=== PATIENT | male | born 2000 | race Caucasian/White ===

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

== ENCOUNTER 2018-03-09 19:19 | Emergency (ER) | payer BC ==
[~2018-03-09] VITALS: Ht 170.1 cm; Wt 49.9 kg
[2018-03-09 19:50] LABS: BILIRUBIN 1+ (NEGATIVE); BLOOD NEGATIVE (NEGATIVE); CLARITY CLEAR (CLEAR); COLOR YELLOW (YELLOW); GLUCOSE NEGATIVE (NEGATIVE); KETONE NEGATIVE (NEGATIVE); PH 6.5 (5.0-9.0)
[2018-03-09 19:51] LABS: LEUKO ESTERASE NEGATIVE (NEGATIVE); NITRITE NEGATIVE (NEGATIVE); UROBILINOGEN 0.2 E.U./dl (0.2-1.0)
[2018-03-09 19:59] LABS: RBC 0-2 rbc/hpf (0-2); WBC 0-2 wbc/hpf (0-5)
[2018-03-09 20:00] LABS: BACTERIA TRACE
== END 2018-03-09 21:03 | disposition home or self-care (01) ==
LOC: ED 19:19
PROVIDERS: Physician Assistant
DX: N34.2 Other urethritis (principal)

== ENCOUNTER 2018-05-20 19:23 | Emergency (ER) | payer BC ==
[~2018-05-20] VITALS: Ht 170.1 cm; Wt 54.4 kg
[2018-05-23 15:05] LABS: GONOCOCCUS BY NAA Negative (Negative)
== END 2018-05-20 20:00 | disposition home or self-care (01) ==
LOC: ED 19:23
PROVIDERS: Student in an Organized Health Care Education/Training Program
DX: R36.9 Urethral discharge, unspecified (principal); R30.9 Painful micturition, unspecified; Z11.3 Encounter for screening for infections with a predominantly sexual mode of transmission; Z79.899 Other long term (current) drug therapy

== ENCOUNTER 2018-06-25 13:59 | Emergency (ER) | payer BC ==
[~2018-06-25] VITALS: Ht 170.1 cm; Wt 54.4 kg
[2018-06-25 14:49] LABS: BILIRUBIN NEGATIVE (NEGATIVE); BLOOD NEGATIVE (NEGATIVE); CLARITY CLEAR (CLEAR); COLOR YELLOW (YELLOW); GLUCOSE NEGATIVE (NEGATIVE); KETONE NEGATIVE (NEGATIVE); LEUKO ESTERASE NEGATIVE (NEGATIVE); NITRITE NEGATIVE (NEGATIVE); SPECIFIC GRAVITY 1.015 (1.005-1.030); UROBILINOGEN 0.2 E.U./dl (0.2-1.0)
[2018-06-25 15:22] LABS: BACTERIA TRACE; RBC 0-2 rbc/hpf (0-2)
[2018-06-27 14:07] LABS: GONOCOCCUS BY NAA Negative (Negative)
== END 2018-06-25 16:02 | disposition home or self-care (01) ==
LOC: ED 13:59
PROVIDERS: Emergency Medicine
DX: R30.0 Dysuria (principal); Z11.3 Encounter for screening for infections with a predominantly sexual mode of transmission; Z79.899 Other long term (current) drug therapy

== ENCOUNTER 2018-07-15 16:15 | Emergency (ER) | payer BC ==
[~2018-07-15] VITALS: Ht 170.1 cm; Wt 54.4 kg
--- NOTE | ~2018-07-15 | EKG ---
[place], [place] ELECTROCARDIOGRAM REPORT NAME: PATO KELLY UNIT #: [id number] ROOM: DOCTOR: EPIPHANY DRAFT REPORT BIRTHDATE: [birth year] [facility] Test Date: 2018-07-15 Test Time: 16:20:08 Pat Name: PATO KELLY Department: ER Room: Gender: M Pool Lifeguard: Cindy Ponce : 2000 Requested By: KIANNA RICCI Order Number: [id number] Reading MD: Yaron Thompson MD Measurements Intervals David Rate: 83 P: 76 OK: 118 QRS: 71 QRSD: 90 T: 12 QT: 359 QTc: 422 Interpretive Statements Sinus rhythm Borderline short OK interval Electronically Signed On 07-17-2018 7:39:59 PST by Yaron Thompson MD CM:EKGRPT:ELECTROCARDIOGRAM REPORT [id number] KIANNA RICCI MD EPIPHANY DRAFT REPORT KIANNA RICCI MD
[2018-07-15 16:42] LABS: BASO % 0.4 % (0.0-1.0); EOS # 0.2 10*3/uL (0.0-0.4); EOS % 3.5 % (1.0-4.0); HEMATOCRIT 44.1 % (42.0-52.0); HEMOGLOBIN 14.7 g/dl (14.0-18.0); LYMPH # 1.9 10*3/uL (1.3-4.4); LYMPH % 40.3 % (27.0-41.0); MEAN CELL VOLUME 89.6 fl (80.0-94.0); MEAN CORPUSCULAR HGB 29.9 pg (27.0-31.0); MEAN CORPUSCULAR HGB CONC 33.3 g/dl (33.0-37.0); MEAN PLATELET VOLUME 9.4 fl (9.6-12.3); MONO # 0.5 10*3/uL (0.1-1.0); MONO % 10.5 % (3.0-9.0); NEUT # 2.1 10*3/uL (2.3-7.9); NEUT % 45.1 % (47.0-73.0); PLATELET COUNT AUTOMATED 169 10*3/uL (130-400); RED BLOOD COUNT 4.92 10*6/uL (4.50-5.90); RED CELL DISTRI WIDTH 12.1 % (0-14.5); WHITE BLOOD COUNT 4.6 10*3/uL (4.8-10.8)
[2018-07-15 16:59] LABS: ALBUMIN 3.8 gm/dl (3.1-4.5); ALKALINE PHOSPHATASE 64 U/L (45-117); BUN 9 mg/dl (7-24); CHLORIDE 107 mmol/L (98-107); CREATININE 0.95 mg/dL (0.70-1.30); POTASSIUM 3.8 mmol/L (3.5-5.1); SGOT/AST 16 IU/L (3-35); SGPT/ALT 20 U/L (12-78); SODIUM 142 mmol/L (136-145); TOTAL PROTEIN 7.1 gm/dL (6.4-8.2)
[2018-07-15 17:00] LABS: TROPONIN I < 0.015 ng/ml (<0.045)
[2018-07-15 17:10] LABS: ACT PARTIAL THROMBO TIME 29.1 SECONDS (20.8-31.5); INTERNATIONAL NORM RATIO 1.1 (2.0-3.5)
[2018-07-15 17:22] LABS: URINE AMPHETAMINES < 1000 (1000ng/ml); URINE BARBITURATES < 200 (200ng/ml); URINE BENZODIAZEPINES < 200 (200ng/ml); URINE CANNABINOIDS (THC) > 50 (50ng/ml); URINE COCAINE < 300 (300ng/ml); URINE METHADONE < 300 (300ng/ml); URINE OPIATES < 300 (300ng/ml)
[2018-07-15 17:24] LABS: URINE PHENCYCLIDINE < 25 (25ng/ml)
[2018-07-15 18:01] LABS: BILIRUBIN NEGATIVE (NEGATIVE); BLOOD NEGATIVE (NEGATIVE); CLARITY SL CLOUDY (CLEAR); COLOR YELLOW (YELLOW); GLUCOSE NEGATIVE (NEGATIVE); KETONE NEGATIVE (NEGATIVE); LEUKO ESTERASE NEGATIVE (NEGATIVE); NITRITE NEGATIVE (NEGATIVE); SPECIFIC GRAVITY 1.025 (1.005-1.030); UROBILINOGEN 0.2 E.U./dl (0.2-1.0)
[2018-07-15 18:11] LABS: BACTERIA TRACE; EPITHELIAL CELLS 0-2; WBC 0-2 wbc/hpf (0-5)
[2018-07-16 22:05] LABS: GONOCOCCUS BY NAA Negative (Negative)
== END 2018-07-15 17:57 | disposition home or self-care (01) ==
LOC: ED 16:15
PROVIDERS: Emergency Medicine
DX: F41.9 Anxiety disorder, unspecified (principal); R07.9 Chest pain, unspecified; R30.0 Dysuria; F12.90 Cannabis use, unspecified, uncomplicated; Z11.3 Encounter for screening for infections with a predominantly sexual mode of transmission; Z88.1 Allergy status to other antibiotic agents; Z79.899 Other long term (current) drug therapy

== ENCOUNTER 2018-08-13 16:15 | Emergency (ER) | payer BC ==
[~2018-08-13] VITALS: Ht 170.1 cm; Wt 54.4 kg
[2018-08-13 16:36] LABS: BILIRUBIN NEGATIVE (NEGATIVE); BLOOD NEGATIVE (NEGATIVE); CLARITY CLEAR (CLEAR); COLOR YELLOW (YELLOW); GLUCOSE NEGATIVE (NEGATIVE); KETONE 3+ (NEGATIVE); LEUKO ESTERASE NEGATIVE (NEGATIVE); NITRITE NEGATIVE (NEGATIVE); PH 5.5 (5.0-9.0); SPECIFIC GRAVITY >= 1.030 (1.005-1.030); UROBILINOGEN 0.2 E.U./dl (0.2-1.0)
[2018-08-13 16:44] LABS: EPITHELIAL CELLS 0-2; WBC 0-2 wbc/hpf (0-5)
[2018-08-14 22:05] LABS: GONOCOCCUS BY NAA Negative (Negative)
[2018-12-05] MEDS ORDERED: CITALOPRAM HYDR10 MG PO (01:58)
== END 2018-08-13 17:10 | disposition home or self-care (01) ==
LOC: ED 16:15
PROVIDERS: Physician Assistant
DX: A64 Unspecified sexually transmitted disease (principal); Z88.1 Allergy status to other antibiotic agents; Z79.899 Other long term (current) drug therapy

== ENCOUNTER 2019-07-14 21:48 | Emergency (ER) | payer BC ==
[~2019-07-14] VITALS: Ht 172.7 cm; Wt 54.4 kg
[~2019-07-14 21:48] MED LIST changes: +CITALOPRAM HYDR10 MG PO
[2019-07-15] MEDS ORDERED: VISTARIL25 M2 PO (00:12)
== END 2019-07-15 00:58 | disposition home or self-care (01) ==
LOC: ED 21:48
DX: F41.9 Anxiety disorder, unspecified (principal); F32.9 Major depressive disorder, single episode, unspecified; R07.9 Chest pain, unspecified; R06.02 Shortness of breath; F17.200 Nicotine dependence, unspecified, uncomplicated; Z88.1 Allergy status to other antibiotic agents

== ENCOUNTER → 2019-07-24 | Outpatient (CLI) | payer BC ==
[~2019-07-24] MED LIST changes: +VISTARIL25 M2 PO
== END | disposition home or self-care (01) ==
LOC: RAD 13:34
DX: R10.9 Unspecified abdominal pain (principal); R30.0 Dysuria; N50.89 Other specified disorders of the male genital organs; R80.9 Proteinuria, unspecified

== ENCOUNTER 2020-08-28 21:23 | Emergency (ER) | payer BC ==
[~2020-08-28] VITALS: Ht 170.1 cm; Wt 54.4 kg
[2020-08-28] MEDS ORDERED: NAPROXEN250 MG PO (21:47)
== END 2020-08-28 21:56 | disposition home or self-care (01) ==
LOC: ED 21:23
DX: S80.12XA Contusion of left lower leg, initial encounter (principal); Z88.1 Allergy status to other antibiotic agents; W18.30XA Fall on same level, unspecified, initial encounter; Y93.89 Activity, other specified; Y92.89 Other specified places as the place of occurrence of the external cause; Y99.9 Unspecified external cause status

== ENCOUNTER 2021-11-07 11:13 | Emergency (ER) | payer BC ==
[~2021-11-07] VITALS: Ht 170.1 cm; Wt 59.0 kg
[~2021-11-07 11:13] MED LIST changes: +NAPROXEN250 MG PO
[2021-11-07] MEDS ORDERED: Motrin,Rufen800 MG PO (11:41)
== END 2021-11-07 11:44 | disposition home or self-care (01) ==
LOC: ED 11:13
DX: L55.1 Sunburn of second degree (principal)

== ENCOUNTER 2023-03-19 16:01 | Emergency (ER) | payer BC ==
[~2023-03-19] VITALS: Ht 170.1 cm; Wt 53.1 kg
[~2023-03-19 16:01] MED LIST changes: +Motrin,Rufen800 MG PO
== END 2023-03-19 19:16 | disposition home or self-care (01) ==
LOC: ED 16:01
DX: J06.9 Acute upper respiratory infection, unspecified (principal); R05.9 Cough, unspecified; F41.9 Anxiety disorder, unspecified; F32.A Depression, unspecified; Z88.8 Allergy status to other drugs, medicaments and biological substances; Z90.89 Acquired absence of other organs

== ENCOUNTER → 2023-05-15 | Outpatient (CLI) | payer BC | END | disposition home or self-care (01) | LOC: CT 16:33 | PROVIDERS: ATTEND Family Medicine | DX: S06.0X0A Concussion without loss of consciousness, initial encounter (principal); S06.330A Contusion and laceration of cerebrum, unspecified, without loss of consciousness, initial encounter; R51.9 Headache, unspecified; X58.XXXA Exposure to other specified factors, initial encounter; Y93.89 Activity, other specified; Y92.89 Other specified places as the place of occurrence of the external cause; Y99.8 Other external cause status ==

== ENCOUNTER → 2023-10-02 | Outpatient (CLI) | payer BC ==
[2023-10-02 16:36] LABS: MEAN CELL VOLUME 88.3 fl (80.0-94.0); MEAN CORPUSCULAR HGB 29.4 pg (27.0-31.0); MEAN CORPUSCULAR HGB CONC 33.3 g/dl (33.0-37.0); MEAN PLATELET VOLUME 9.2 fl (9.6-12.3); RED BLOOD COUNT 5.21 10*6/uL (4.50-5.90); RED CELL DISTRI WIDTH 11.8 % (0-14.5); WHITE BLOOD COUNT 5.3 10*3/uL (4.8-10.8)
[2023-10-02 17:02] LABS: ALKALINE PHOSPHATASE 73 U/L (46-116); BUN 13 mg/dl (9-23); CHLORIDE 105 mmol/L (98-107); POTASSIUM 4.1 mmol/L (3.4-5.1); SGPT/ALT 31 U/L (5-49); TOTAL PROTEIN 7.2 gm/dL (6.0-8.0)
== END | disposition home or self-care (01) ==
LOC: LAB 16:19
PROVIDERS: ATTEND Family Medicine
DX: T14.8XXA Other injury of unspecified body region, initial encounter (principal); M43.8X4 Other specified deforming dorsopathies, thoracic region; X58.XXXA Exposure to other specified factors, initial encounter; Y93.89 Activity, other specified; Y92.89 Other specified places as the place of occurrence of the external cause; Y99.8 Other external cause status

== ENCOUNTER 2024-07-13 16:25 | Emergency (ER) | payer BC ==
[~2024-07-13] VITALS: Ht 170.1 cm; Wt 59.0 kg
[2024-07-13 17:40] LABS: BILIRUBIN Negative (Negative); BLOOD Negative (Negative); CLARITY Turbid (Clear); COLOR Yellow (Yellow); GLUCOSE Negative (Negative); KETONE Trace (Negative); LEUKO ESTERASE Negative (Negative); NITRITE Negative (Negative); UROBILINOGEN 0.2 E.U./dl (0.0-1.0)
[2024-07-13 17:51] LABS: BACTERIA TRACE
[2024-07-13 17:52] LABS: CALCIUM OXALATE CRYSTALS Trace; RBC 0-2 rbc/hpf (0-2)
== END 2024-07-13 18:15 | disposition home or self-care (01) ==
LOC: ED 16:25
PROVIDERS: Nurse Practitioner Family
DX: N43.3 Hydrocele, unspecified (principal); F41.9 Anxiety disorder, unspecified; F32.A Depression, unspecified; Z88.1 Allergy status to other antibiotic agents; Z90.89 Acquired absence of other organs

== ENCOUNTER → 2024-07-28 | Outpatient (CLI) | payer BC | END | disposition home or self-care (01) | LOC: US 07:21 | PROVIDERS: ATTEND Urology | DX: N20.0 Calculus of kidney (principal) ==